=== PATIENT | male | born 1980 | race Two or more races ===

== ENCOUNTER 2017-12-04 08:41 | Emergency (ER) | payer MEDICAID ==
[~2017-12-04] VITALS: Ht 170.2 cm; Wt 76.0 kg
[~2017-12-04 08:41] MED LIST: ALBU8HFA PO; AZIT250T PO
[2017-12-04] MEDS ORDERED: CYCL-1 PO (09:08)
[2017-12-04] MEDS ORDERED: NAPR-56 PO (09:08)
[2017-12-04] MEDS ORDERED: naproxen 500mg tablet PO ONE (09:10)
[2017-12-04 09:19] VITALS: BP 139/86
[2017-12-05] MEDS ORDERED: LORA10TA61 PO (00:23)
== END 2017-12-04 09:30 | disposition home or self-care (01) ==
LOC: ER 08:41
DX: S23.41XA Sprain of ribs, initial encounter (principal); J45.909 Unspecified asthma, uncomplicated; G89.29 Other chronic pain; Z88.8 Allergy status to other drugs, medicaments and biological substances; Z79.899 Other long term (current) drug therapy; X58.XXXA Exposure to other specified factors, initial encounter; Y93.72 Activity, wrestling; Y92.89 Other specified places as the place of occurrence of the external cause; Y99.8 Other external cause status
CPT/HCPCS: 71046; 93005; 99284

== ENCOUNTER 2017-12-04 22:30 | Emergency (ER) | payer MEDICAID ==
[~2017-12-04] VITALS: Ht 170.2 cm; Wt 78.1 kg
[~2017-12-04 22:30] MED LIST changes: +CYCL-1 PO; +NAPR-56 PO
[2017-12-04 22:36] VITALS: BP 131/82
[2017-12-05] MEDS ORDERED: LORA10TA61 PO (00:23)
== END 2017-12-05 00:49 | disposition home or self-care (01) ==
LOC: ER 22:31
DX: J45.909 Unspecified asthma, uncomplicated (principal); G89.29 Other chronic pain; Z88.8 Allergy status to other drugs, medicaments and biological substances; Z79.899 Other long term (current) drug therapy
CPT/HCPCS: 99283

== ENCOUNTER 2018-12-04 06:44 | Emergency (ER) | payer MEDICAID ==
[~2018-12-04] VITALS: Ht 167.6 cm; Wt 74.1 kg
[~2018-12-04 06:44] MED LIST changes: +LORA10TA61 PO; -NAPR-56 PO
[2018-12-04 06:47] VITALS: BP 102/69
[2018-12-04] MEDS ORDERED: PRED20TA PO (07:09)
[2018-12-04] MEDS ORDERED: INHA1INH2 (07:09)
[2018-12-04] MEDS ORDERED: predniSONE 20 mg tablet PO ONE (07:10)
[2018-12-04] MEDS ORDERED: ipratropium/albuterol 3ml nebule NEB ONE (07:10)
== END 2018-12-04 07:44 | disposition home or self-care (01) ==
LOC: ER 06:45
DX: J45.901 Unspecified asthma with (acute) exacerbation (principal); G89.29 Other chronic pain; Z79.899 Other long term (current) drug therapy
CPT/HCPCS: 94640; 94760; 99283; J7512

== ENCOUNTER 2018-12-23 04:11 | Emergency (ER) | payer MEDICAID ==
[~2018-12-23] VITALS: Ht 170.2 cm; Wt 74.0 kg
[~2018-12-23 04:11] MED LIST changes: +INHA1INH2; +PRED20TA PO
[2018-12-23] MEDS ORDERED: dexamethasone 4mg tablet PO STA (04:17)
[2018-12-23 04:46] VITALS: BP 154/95
== END 2018-12-23 04:48 | disposition home or self-care (01) ==
LOC: ER 04:11
DX: J45.901 Unspecified asthma with (acute) exacerbation (principal); G89.29 Other chronic pain; Z88.8 Allergy status to other drugs, medicaments and biological substances; Z79.1 Long term (current) use of non-steroidal anti-inflammatories (NSAID); Z79.899 Other long term (current) drug therapy
CPT/HCPCS: 99283; J8540

== ENCOUNTER 2019-01-03 04:13 | Emergency (ER) | payer MEDICAID ==
[~2019-01-03] VITALS: Ht 167.6 cm; Wt 72.2 kg
[2019-01-03] MEDS ORDERED: ipratropium/albuterol 3ml nebule NEB ONE (04:20)
[2019-01-03] MEDS ORDERED: dexamethasone 4mg tablet PO ONE (04:30)
[2019-01-03] MEDS ORDERED: ALBU18HF2 INH (04:33)
[2019-01-03] MEDS ORDERED: PRED20TA PO (04:33)
[2019-01-03 05:01] VITALS: BP 115/71
== END 2019-01-03 05:06 | disposition home or self-care (01) ==
LOC: ER 04:14
DX: J45.901 Unspecified asthma with (acute) exacerbation (principal); J22 Unspecified acute lower respiratory infection; G89.29 Other chronic pain; Z79.899 Other long term (current) drug therapy
CPT/HCPCS: 94640; 94760; 99283; J8540

== ENCOUNTER 2022-01-26 17:45 | Emergency (ER) | payer MEDICAID ==
[~2022-01-26] VITALS: Ht 167.6 cm; Wt 72.7 kg
[~2022-01-26 17:45] MED LIST changes: +ALBU18HF2 INH; -PRED20TA PO
[2022-01-26 18:12] LABS: BASOPHILS # (AUTO) 0.1 X10'3 (0-0.2); BASOPHILS % (AUTO) 1.2 % (0-1); EOSINOPHILS # (AUTO) 0.7 X10'3 (0-0.9); EOSINOPHILS % (AUTO) 7.6 % (0-6); HEMATOCRIT 42.7 % (42.0-52.0); HEMOGLOBIN 14.7 g/dl (14.0-17.9); LYMPHOCYTES # (AUTO) 2.7 X10'3 (1.1-4.8); LYMPHOCYTES % (AUTO) 30.3 % (21-51); MEAN CORPUSCULAR HEMOGLOBIN 27.9 PG (27.0-31.0); MEAN CORPUSCULAR HGB CONC 34.4 g/dL (33.0-36.5); MEAN CORPUSCULAR VOLUME 80.9 FL (78-98); MEAN PLATELET VOLUME 8.1 FL (7.4-10.4); MONOCYTES # (AUTO) 0.6 X10'3 (0-0.9); MONOCYTES % (AUTO) 6.8 % (2-12); NEUTROPHILS # (AUTO) 4.9 X10'3 (1.8-7.7); NEUTROPHILS % (AUTO) 54.1 % (42-75); PLATELET COUNT 217 X10'3 (140-440); RED BLOOD COUNT 5.28 X10'6 (4.70-6.10); RED CELL DISTRIBUTION WIDTH 14.2 % (11.5-14.5)
[2022-01-26 18:20] LABS: ALANINE AMINOTRANSFERASE 31 U/L (12-78); ALBUMIN 4.1 G/DL (3.4-5.0); ALBUMIN/GLOBULIN RATIO 1.2 (1.1-1.5); ALKALINE PHOSPHATASE 71 IU/L (46-116); ANION GAP 11 (8-16); ASPARTATE AMINO TRANSFERASE 22 U/L (10-37); BILIRUBIN,TOTAL 0.7 MG/DL (0.1-1.0); BLOOD UREA NITROGEN 17 MG/DL (7-18); BUN/CREATININE RATIO 17.2 (5.4-32.0); CALCIUM 8.9 MG/DL (8.5-10.1); CHLORIDE 106 MMOL/L (99-107); CREATININE 0.99 MG/DL (0.60-1.10); GLUCOSE 103 MG/DL (70-104); POTASSIUM 3.6 MMOL/L (3.5-5.1); SODIUM 142 MMOL/L (135-145); TOTAL CARBON DIOXIDE 25.5 MMOL/L (24-32); TOTAL PROTEIN 7.5 G/DL (6.4-8.2); eGFR 84 ML/MIN
[2022-01-26 20:52] VITALS: BP 138/84
== END 2022-01-26 20:56 | disposition home or self-care (01) ==
LOC: ER 17:47
DX: R07.9 Chest pain, unspecified (principal); J45.909 Unspecified asthma, uncomplicated; G89.29 Other chronic pain; M54.9 Dorsalgia, unspecified; Z88.8 Allergy status to other drugs, medicaments and biological substances
CPT/HCPCS: 36415; 71045; 80053; 83880; 84484; 85025; 93005; 99285

== ENCOUNTER 2022-12-19 11:49 | Emergency (ER) | payer MEDICAID ==
[~2022-12-19] VITALS: Ht 170.2 cm; Wt 75.9 kg
[2022-12-19 12:17] VITALS: BP 131/88
[2022-12-19] MEDS ORDERED: LIDOcaine 1% 30ml preserv. free vial IJ ONE (12:55)
[2022-12-19] MEDS ORDERED: TETanus/Pertussis (Acell)/Diphther VAC/PF (Tdap-Adult) 0.5ml syringe IMVAC ONE (12:55)
[2022-12-19] MEDS ORDERED: bacitracin 15gm ointment TP ONE (12:55)
[2022-12-19] MEDS ORDERED: ketorolac trometh inj. 60 MG/2 ML VIAL IM ONE (12:55)
--- NOTE | 2022-12-19 13:11 | NUR ---
XRAY AT BS
[2022-12-19] MEDS ORDERED: CEPH-585 PO (14:54)
[2022-12-19] MEDS ORDERED: IBUP-1986 PO (14:54)
== END 2022-12-19 15:02 | disposition home or self-care (01) ==
LOC: ER 11:50
DX: S41.111A Laceration without foreign body of right upper arm, initial encounter (principal); G89.29 Other chronic pain; M54.9 Dorsalgia, unspecified; J45.909 Unspecified asthma, uncomplicated; Z88.8 Allergy status to other drugs, medicaments and biological substances; Z79.899 Other long term (current) drug therapy; W22.8XXA Striking against or struck by other objects, initial encounter; Y93.89 Activity, other specified; Y92.89 Other specified places as the place of occurrence of the external cause; Y99.8 Other external cause status
CPT/HCPCS: 12002; 73080; 90471; 90715; 96372; 99284; J1885; J3490; A6449

== ENCOUNTER 2023-04-02 11:07 | Emergency (ER) | payer MEDICAID ==
[~2023-04-02] VITALS: Ht 170.2 cm; Wt 74.6 kg
[~2023-04-02 11:07] MED LIST changes: +IBUP-1986 PO
[2023-04-02 11:09] VITALS: BP 133/95; PULSE 94; RESP 16; TEMP 98.3; O2SAT 99
--- NOTE | 2023-04-02 11:25 | NUR ---
PT PRESENTS TO THE ER FOR LEFT TESTICULAR PAIN FOR 2 WEEKS. PT REPORTS PAIN IS INTERMITTENT. PT REPORTS NO PAIN AT MOMENT BUT GET SHOOTING PAIN UP TO STOMACH.
--- NOTE | 2023-04-02 13:06 | NUR ---
CLINIC SPECIALIST AT BEDSIDE.
[2023-04-02 13:19] LABS: BILIRUBIN,URINE NEGATIVE (Neg); CLARITY,URINE CLEAR (Clear); COLOR,URINE YELLOW (Yellow); GLUCOSE, URINE NEGATIVE (Neg); KETONES,URINE NEGATIVE (Neg); LEUKOCYTE ESTERASE ,URINE NEGATIVE (Neg); NITRITES, URINE NEGATIVE (Neg); OCCULT BLOOD,URINE TRACE-INTACT (Neg); PH,URINE 5.5 (4.8-8.0); PROTEIN,URINE NEGATIVE (Neg); UROBILINOGEN,URINE 0.2 E.U/dL (0.2-1.0)
[2023-04-02 13:25] LABS: UA COLLECTION TYPE CLN CATCH MIDSTREAM
[2023-04-02 13:26] LABS: BACTERIA,URINE NONE SEEN /HPF (Neg); MUCUS STRANDS FEW /LPF (Neg); RBC,URINE 0-2 /HPF (0-2); SQUAMOUS EPITHELIAL CELL,UR FEW /LPF (FEW); WBC,URINE 0-4 /HPF (0-4)
[2023-04-02] MEDS ORDERED: CefTRIAXone 500MG IM Kit w/LIDOcaine IM ONE (13:30)
[2023-04-02] MEDS ORDERED: DOXY100C43 PO (13:33)
[2023-04-06 08:49] LABS: CHLAMYDIA TRACHOMATIS, NAA Negative (Negative)
== END 2023-04-02 13:57 | disposition home or self-care (01) ==
LOC: ER 11:08
DX: N50.812 Left testicular pain (principal); N45.1 Epididymitis; J45.909 Unspecified asthma, uncomplicated; G89.29 Other chronic pain; F17.210 Nicotine dependence, cigarettes, uncomplicated; Z72.89 Other problems related to lifestyle; Z91.041 Radiographic dye allergy status; Z79.2 Long term (current) use of antibiotics; Z79.899 Other long term (current) drug therapy
CPT/HCPCS: 36415; 76870; 81001; 87491; 87591; 93976; 96372; 99285; J0696

== ENCOUNTER 2025-05-04 12:01 | Emergency (ER) | payer MEDICAID ==
[~2025-05-04] VITALS: Ht 167.6 cm; Wt 74.5 kg
[2025-05-04 12:26] VITALS: BP 132/87; PULSE 94; RESP 14; O2SAT 99
--- NOTE | 2025-05-04 14:40 | RADIOLOGY REPORT ---
CLINICAL INDICATION: headaches and neck pain TECHNIQUE: 3 radiographic views of the cervical spine were obtained. Comparison: None FINDINGS/IMPRESSION: 7 [id number] cervical type vertebrae. Normal alignment of the cervical spine. Vertebral body heights are maintained. No evidence of acute traumatic fractures or spondylolisthesis. No significant degenerative changes of the cervical spine. Prevertebral soft tissues are unremarkable. Airways are patent. The lung apices are clear. If symptoms persist, consider CT/MRI for further evaluation.
[2025-05-04] MEDS ORDERED: CYCL-920 PO (15:35)
--- NOTE | 2025-05-04 15:35 | Physician Documentation ---
History of Present Illness ~ Chief Complaint: Head Pain Stated Complaint: HEADACHES Time Seen by MD: 13:18 OK to notify your PCP?: Yes Primary Medical Doctor: Romelia Source: patient Mode of Arrival: POV Exam Limitations: no limitations HPI 45-year-old male with chief complaint headaches that has been ongoing now for several weeks he has already been seen by his primary care provider for them in his primary care provider wanted him to get a neck x-ray but he states he has not yet done this. Pain starts in the back of his head and will radiate up by his quaker. He spends a lot of time looking down at work and feels like this exacerbates his pain. No history of any cervical injuries. Denies worst headache of his life, fever, vision changes, nausea or vomiting. Patient also reports ringing intermittently that he hears out of his right ear. He states he just noticed this last night and when this started it made him c oncerned because he was not sure if this had any relationship to the headaches which is why he decided to come in to the ER today. No ear pain. Currently he denies hearing any ringing he notices that he hears the ringing more when it is quiet. He does state that he is exposed to a lot of very loud noise at his work and that he does wear hearing protection but that it is still loud. Medication Reconciliation Allergies: Coded Allergies: iodine (Verified Allergy, Severe, FACIAL SWELLING, 05/04/25) Scheduled Albuterol Sulfate (Ventolin Hfa), 2 PUFFS INH Q4HPRN Azithromycin (Zithromax), 1 DOSPAK PO UD Cyclobenzaprine HCl (Cyclobenzaprine HCl), 1 TAB PO HSPRN Ibuprofen (Ibuprofen), 1 TAB PO Q8H Loratadine (Claritin), 1 TAB PO DAILY Scheduled PRN Cyclobenzaprine* (Cyclobenzaprine*), 1 TABLET PO HS PRN for muscle spasms albuterol inhaler (Pro-Air Inhaler), 1-2 PUFFS PO Q4H PRN for SOB or wheezing, (Reported) Durable Medical Equipment Inhaler, Assist Devices (Aerochamber with Flowsignal), UNIT, (DME) Past Medical History Past Medical History: Asthma, Gastritis, GI Bleed, Hernia, Chronic Back Pain Past Surgical History: no surgical history Alcohol Use: Occasionally Drug Use: none Lives with: S/O Lives In: Home Occupation: employed Review of Systems All Other Systems at this time: Reviewed and Negative Physical Exam Vital Signs: Temperature: 98.0, Source: Temporal, Heart Rate: 94, Respiratory Rate: 14, BP: 132/87, Pulse Oximetry: 99, Weight: 74.550 Oxygen Flow Rate: 0 Physical Exam General Appearance: Alert, WD/WN. NAD. HEENT: NCAT, PERRL, EOMI. LEFT EAR CANAL OCCLUDED WITH DARK CERUMEN. RIGHT EAR CANAL PATENT TM INTACT, Neck: Supple, trachea midline. Cardiovascular: RRR. No m/r/g. Lungs: CTAB. Breathing unlabored SPINE: TTP OVER UPPER PARASPINAL MUSCLES OF CERVICAL SPINE, NO MIDLINE TTP. AROM OF CERVICAL SPINE IS FULL. Extremities: Normal inspection. No edema. Skin: Warm/dry, normal color Neurological: Alert and oriented x4, normal gait. Psychiatric: Affect congruent with mood. Progress Results/Orders Results/Orders Orders - GIACOMO MARCOS [facility] Sp[facility] (05/04/25 14:18) Completed Orders - GIACOMO MARCOS Cervical Spine [facility] (05/04/25 14:18) Vital Signs 05/04/25 05/04/25 12:26 15:58 Temp 98.0 98.0 Pulse 94 Resp 14 B/P (MAP) 132/87 Pulse Ox 99 O2 Flow Rate 0 Medical Decision Making Differential Dx:Considerations: Include: DIEGO-Cluster, DIEGO-Migraine, DIEGO- Hypertensive, DIEGO-Muscular contraction, DIEGO-Post lumbar puncture, Carbon monoxide toxicity, Close head injuyr, CVA, Fever induced, Hemorrhage-Epidural, Hemorrhage-Intracerebral, Hemorrhage-Subarachnoid, Hemorrhage-Subdural, Mass lesion, Meningitis, Post-traumtic, Pseudotumor cerebri, Sinusitis, Temporal arteritis, Trigeminal neuralgia, Other Additional Comment PATIENT DENIES WORST HEADACHE OF HIS LIFE. HE HAS NO H/O NECK/CERVICAL TRAUMA. SYMPTOMS AND EXAM FINDINGS MOST CONSISTENT WITH OCCIPITAL NEURALGIA WHICH SOUND LIKE IS THE SAME DIAGNOSIS THE PCP WAS THINKING WELL. PATIENT'S RIGHT EAR TINNITUS MAY BE FROM HEARING LOSS, I ENCOURAGED HIM TO GET HEARING TEST BY HIS PCP ONCE THE CERUMEN IS REMOVED FROM HIS LEFT AND TO THEN REASSESS. IF PATIENT DOES HAVE ONLY UNILATERAL TINNITUS HE WOULD NEED OUTPATIENT EVAL FOR ACOUSTIC NEUROMA WHICH I EXPLAINED TO HIM TODAY BUT EXPLAINED THIS IS NOT AN EMERGENT ISSUE THAT WARRANTS INVESTIGATION WITH MRI IN ER. Departure Time of Disposition: 15:33 Disposition: 01 HOME / SELF CARE / HOMELESS Impression: Primary Impression: Occipital neuralgia Qualified Codes: M54.81 - Occipital neuralgia Additional Impressions: Tinnitus, right ear Impacted cerumen of left ear Condition: Stable Discharge Instructions: Headache Additional Instructions: F/U WITH PCP ABOUT REFERRAL TO PHYSICAL THERAPY FOR YOUR OCCIPITAL NEURALGIA F/U WITH PCP ABOUT THE RINGING IN YOUR RIGHT EAR AND THE CERUMEN IMPACTION IN YOUR LEFT EAR FOR EAR LAVAGE RECOMMEND DEBROX OR MINERAL NIGHTLY TO LEFT EAR CANAL COPY OF XRAY BELOW TO TAKE TO YOUR PCP Patient: YUNG UMANZOR Medical Record: [id number] [facility] : 1980, Age: 45 Sex: Male Location: ER Patient Status: [facility] ER Service Date/Time: 05/04/251417 Ordering Physician: GIACOMO MARCOS Exam: [facility] CLINICAL INDICATION: headaches and neck pain TECHNIQUE: 3 radiographic views of the cervical spine were obtained. Comparison: None FINDINGS/IMPRESSION: 7 [id number] cervical type vertebrae. Normal alignment of the cervical s pine. Vertebral body heights are maintained. No evidence of acute traumatic fractures or spondylolisthesis. No significant degenerative changes of the cervical spine. Prevertebral soft tissues are unremarkable. Airways are patent. The lung apices are clear. If symptoms persist, consider CT/MRI for further evaluation. Referrals: NO PRIMARY CARE PROVIDER (PCP) Prescriptions Cyclobenzaprine HCl (Cyclobenzaprine HCl) 5 Mg Tablet 1 TAB PO HSPRN for 14 Days, #14 TAB 0 Refills Prov: GIACOMO MARCOS 05/04/25 Education Educated: Patient Educated regarding: diagnosis, treatment, need for follow up Signature Scribe Signature: X Attestation: GIACOMO JACK May 04, 2025 15:35
[2025-05-04 15:58] VITALS: TEMP 98
== END 2025-05-04 15:59 | disposition home or self-care (01) ==
LOC: ER 12:01
DX: M54.81 Occipital neuralgia (principal); H93.11 Tinnitus, right ear; H61.22 Impacted cerumen, left ear; G89.29 Other chronic pain; J45.909 Unspecified asthma, uncomplicated; Z88.8 Allergy status to other drugs, medicaments and biological substances; Z79.899 Other long term (current) drug therapy; Z87.19 Personal history of other diseases of the digestive system; Z72.89 Other problems related to lifestyle
CPT/HCPCS: 72040; 99283